=== PATIENT | male | born 1955 | race Caucasian/White ===

== ENCOUNTER 2019-01-15 05:49 | Inpatient (IN) | payer OTHER ==
--- NOTE | 2019-01-09 09:40 | HP ---
HISTORY AND PHYSICAL: DATE OF SURGERY: 01/15/19 DATE OF OFFICE VISIT: 01/05/19 SURGEON: Keily Couch MD.* (DICTATED BY GERMAN CORDOVA) PROCEDURE: Right total hip arthroplasty. CHIEF COMPLAINT: Right hip pain. HISTORY OF PRESENT ILLNESS: Mr. Romo is a 63-year-old gentleman with continued complaints of right hip pain. He has failed conservative treatment and elected to proceed with a right total hip arthroplasty. PAST MEDICAL HISTORY: Hypertension, high cholesterol, gout. PAST SURGICAL HISTORY: Tonsillectomy, sebaceous cyst removal from his back. CURRENT MEDICATIONS: 1. Potassium. 2. Gemfibrozil 600 mg 1 tablet twice a day. 3. Atenolol unknown dose daily. 4. Amlodipine daily. 5. Lisinopril daily. 6. Sulindac. 7. Allopurinol. 8. Methocarbamol. 9. Gabapentin. ALLERGIES: No known drug allergies. FAMILY HISTORY: Diabetes and hypertension. SOCIAL HISTORY: He is a 63-year-old gentleman. He lives alone. He works as a interrelated special education teacher. He denies use of tobacco or illicit drugs. REVIEW OF SYSTEMS: A complete 14-point review of systems was reviewed with the patient, is all negative or noncontributory. He denies history of DVT, PE, hepatitis, HIV, or anesthesia problems. PHYSICAL EXAMINATION GENERAL: He is well developed, well nourished, in no acute distress. VITAL SIGNS: He stands 5 feet 10 inches tall, weighs 257 pounds. His blood pressure is 124/84, his heart rate is 80. HEENT: Normocephalic and atraumatic. NECK: Supple. No palpable lymph nodes. PULMONARY: The lungs are clear to auscultation bilaterally. CARDIO: Regular rate and rhythm. Strong S1 and S2. ABDOMEN: Soft, nontender, and nondistended. NEUROLOGIC: He is alert and oriented x3. MUSCULOSKELETAL: Right lower extremity, the skin is intact. There are no open wounds or abrasions. He has 0 to 80 degrees of hip flexion. He lacks 10 degrees from neutral and has no internal rotation. Has 20 degrees of external rotation with severe groin pain. He has 2+ dorsalis pedis pulse, intact sensation, and his lower extremity muscle group strengths are intact at 5/5. ASSESSMENT AND PLAN: Mr. Romo is a 63-year-old gentleman with severe end- stage osteoarthritis of the right hip. He has failed conservative treatment and elected to proceed with a right total hip arthroplasty. The surgery is scheduled for 01/15/[address] Couch discussed the risks and benefits of the surgery at today's visit and all of his questions were answered. He will follow up with Dr. Couch 2 weeks after his surgery. GERMAN CORDOVA [id number]/[facility] #: [id number] MTDJacqueline
[~2019-01-15 05:49] MED LIST: DiMENhydriNATE IV* 50 MG/ML VIAL IV PUSH PRN; Morphine VIAL* 4 MG/ML VIAL (1 ml vial) IV PRN; Naloxone* 0.4 MG/ML 1 ML VIAL IV PRN; PROCHLORPERAZINE INJ 5 MG/ML 2 ML VIAL IV PRN; fentaNYL* 50 MCG/ML 2 ML VIAL (100 MCG VIAL) IV PRN; oxyCODONE/Acetamin 5/325 MG* TAB PO PRN
[2019-01-15] MEDS ORDERED: Lactated Ringers 1000 ML Bag* 1,000 ML IV SCH ×2 (06:00→11:00)
[2019-01-15] MEDS ORDERED: Famotidine IV* 10 MG/ML 2 ML (20 mg) IV ONE (06:00)
[2019-01-15] MEDS ORDERED: Gabapentin CAP(*) 300 MG PO ONE (06:00)
[2019-01-15] MEDS ORDERED: Ondansetron INJ* 2 MG/ML VIAL ONE (06:00)
[2019-01-15] MEDS ORDERED: Dexamethasone TAB* 4 MG PO ONE (06:00)
[2019-01-15] MEDS ORDERED: Gabapentin CAP(*) 300 MG ONE (06:41)
[2019-01-15] MEDS ORDERED: Famotidine IV* 10 MG/ML 2 ML (20 mg) ONE (06:41)
[2019-01-15] MEDS ORDERED: Ondansetron ODT TAB* 4 MG ONE (06:41)
[2019-01-15] MEDS ORDERED: ceFAZolin 2 GM PREMIX in ORs 2 GM/50 ML BAG IVPB ONE (06:42)
[2019-01-15] MEDS ORDERED: Dexamethasone TAB* 4 MG ONE (06:42)
[2019-01-15] MEDS: Buffered Lidocaine 1% SYRIN* 1 ML/SYRINGE INTRADERM ONE ×2 (06:58→18:06)
[2019-01-15] MEDS ORDERED: fentaNYL* 50 MCG/ML 5 ML VIAL (250 MCG VIAL) ONE (07:03)
[2019-01-15] MEDS ORDERED: Midazolam* 1 MG/ML 5 ML VIAL (5 MG) ONE (07:03)
[2019-01-15] MEDS ORDERED: Atracurium* 10 MG/ML 10 ML VIAL ONE (07:03)
[2019-01-15] MEDS ORDERED: ROPIVACAINE 5 MG/ML 30 ML BTL (0.5%) ONE (07:14)
[2019-01-15] MEDS ORDERED: Ketorolac INJ* 30 MG/ML 1 ML VIAL ONE (08:54)
[2019-01-15] MEDS ORDERED: PROCHLORPERAZINE INJ 5 MG/ML 2 ML VIAL ONE (08:54)
[2019-01-15] MEDS ORDERED: Propofol* 10 MG/ML 20 ML BTL ONE (08:54)
[2019-01-15] MEDS ORDERED: Lidocaine 2% PF * 5 ML VIAL ONE (08:54)
[2019-01-15] MEDS ORDERED: Phenylephrine INJ* 10 MG/ML 1 ML VIAL (10 MG) ONE (08:54)
[2019-01-15] MEDS ORDERED: Morphine VIAL* 10 MG/ML 1 ML VIAL ONE (09:09)
[2019-01-15] MEDS ORDERED: Morphine VIAL* 4 MG/ML VIAL (1 ml vial) IV PRN (10:07)
[2019-01-15] MEDS ORDERED: Magnesium Hydroxide LIQ* 30 ML UDC PO PRN (10:07)
[2019-01-15] MEDS ORDERED: diPHENhydraMINE IV* 50 MG/ML 1 ml VIAL (BENADRYL) IV PRN (10:07)
[2019-01-15] MEDS ORDERED: Cyclobenzaprine TAB* 10 MG PO PRN (10:07)
[2019-01-15] MEDS ORDERED: Ondansetron INJ* 2 MG/ML VIAL IV PRN (10:07)
[2019-01-15] MEDS ORDERED: Acetaminophen TAB* 325 MG PO PRN (10:07)
[2019-01-15] MEDS ORDERED: oxyCODONE/Acetamin 5/325 MG* TAB PO PRN (10:07)
[2019-01-15] MEDS ORDERED: Bisacodyl SUPP* 10 MG SUPP PR PRN (10:07)
[2019-01-15] MEDS ORDERED: fentaNYL* 50 MCG/ML 2 ML VIAL (100 MCG VIAL) ONE (10:20)
[2019-01-15] MEDS ORDERED: oxyCODONE/Acetamin 5/325 MG* TAB ONE (10:53)
[2019-01-15] MEDS: oxyCODONE/Acetamin 5/325 MG* TAB PO PRN ×2 (10:54→18:55)
[2019-01-15] MEDS: ceFAZolin 1 GM ADVAN(*) 1 GM in NS 0.9% 50 ML* 50 ML IVPB SCH ×2 (16:46→23:22)
[2019-01-15] MEDS ORDERED: Warfarin TAB(*) 6 MG PO ONE (17:00)
--- NOTE | 2019-01-15 17:56 | PN ---
Subjective Date of Service: 01/15/19 Interval History: HD1 POD #0 63 yo M with PMH HTN, HLD, gout, SO? (un dx and not on tx) who is presenting for THR, R. Uncomplicated procedure per ortho team, med is consulted for medical mgmt Post op course c/b hypoxia, CXR unremarkable VSS at 6PM, afebrile,normotensive, sinus regular Seen at bedside very pleasant and well, minimal pain, wearing NC, O2 requirmeents going down as anesthesia wears off, no complaints whatsoever Objective Active Medications: Acetaminophen (Tylenol Tab*) 650 mg PO Q6H PRN PRN Reason: PAIN OR TEMPERATURE Amlodipine Besylate (Norvasc Tab*) 10 mg PO QAM JON Atenolol (Tenormin Tab*) 50 mg PO QAM JON Bisacodyl (Dulcolax Supp*) 10 mg AL DAILY PRN PRN Reason: constipation Cyclobenzaprine HCl (Flexeril Tab*) 5 mg PO TID PRN PRN Reason: SPASMS Diphenhydramine HCl (Benadryl Iv*) 25 mg IV Q6H PRN PRN Reason: itching Docusate Sodium (Colace Cap*) 100 mg PO BID JON Enoxaparin Sodium (Lovenox(*)) 40 mg SUBCUT Q24H JON Cefazolin Sodium 1 gm/ Sodium (Chloride) 50 mls @ 200 mls/hr IVPB Q8H [facility] Stop: 01/16/19 07:44 Last Admin: 01/15/19 16:46 Dose: 200 mls/hr Lactated Ringer's (Lactated Ringers 1000 Ml Bag*) 1,000 mls @ 100 mls/hr IV PER RATE [facility] Lactulose (Lactulose*) 30 ml PO Q6H PRN PRN Reason: constipation Lisinopril (Prinivil Tab*) 40 mg PO BID JON Magnesium Hydroxide (Milk Of Magnesia Liq*) 30 ml PO BID JON Magnesium Hydroxide (Milk Of Magnesia Liq*) 30 ml PO Q6H PRN PRN Reason: constipation Morphine Sulfate (Morphine Vial*) 2 mg IV Q2H PRN PRN Reason: PAIN Ondansetron HCl (Zofran Inj*) 4 mg IV Q6H PRN PRN Reason: nausea Oxycodone HCl (Roxycodone Tab*) 10 mg PO Q4H PRN PRN Reason: PAIN - SEVERE Oxycodone/Acetaminophen (Percocet 5/325 Tab*) 1 tab PO Q4H PRN PRN Reason: PAIN Oxycodone/Acetaminophen (Percocet 5/325 Tab*) 2 tab PO Q4H PRN PRN Reason: PAIN Last Admin: 01/15/19 10:54 Dose: 2 tab Vital Signs - 8 hr 01/15/19 01/15/19 01/15/19 10:06 10:11 10:16 Temperature 97.0 F Pulse Rate 73 75 71 Respiratory 23 17 Rate Blood Pressure 142/82 129/78 134/73 (mmHg) O2 Sat by Pulse 92 94 95 Oximetry 01/15/19 01/15/19 01/15/19 10:20 10:30 10:45 Temperature Pulse Rate 69 62 Respiratory 21 20 Rate Blood Pressure 129/74 127/73 (mmHg) O2 Sat by Pulse 90 98 95 Oximetry 01/15/19 01/15/19 01/15/19 10:46 10:54 11:00 Temperature Pulse Rate 64 Respiratory 28 15 12 Rate Blood Pressure 137/76 132/77 (mmHg) O2 Sat by Pulse 91 Oximetry 01/15/19 01/15/19 01/15/19 11:15 11:31 11:45 Temperature Pulse Rate 64 64 65 Respiratory 13 14 12 Rate Blood Pressure 126/71 136/67 127/77 (mmHg) O2 Sat by Pulse 94 98 98 Oximetry 01/15/19 01/15/19 01/15/19 12:00 12:15 12:30 Temperature 97.2 F Pulse Rate 66 64 64 Respiratory 18 7 7 Rate Blood Pressure 123/71 115/66 121/70 (mmHg) O2 Sat by Pulse 98 91 90 Oximetry 01/15/19 01/15/19 01/15/19 12:45 13:00 14:00 Temperature 97.0 F Pulse Rate 65 63 Respiratory 6 8 Rate Blood Pressure 110/69 119/65 (mmHg) O2 Sat by Pulse 90 95 98 Oximetry 01/15/19 01/15/19 01/15/19 14:31 17:07 17:32 Temperature 97.6 F 98.2 F 98.3 F Pulse Rate 65 74 72 Respiratory 18 18 20 Rate Blood Pressure 122/63 144/77 139/73 (mmHg) O2 Sat by Pulse 98 100 100 Oximetry Oxygen Devices in Use Now: None, Nasal Cannula Appearance: Pleasant man in NAD Eyes: No Scleral Icterus Ears/Nose/Mouth/Throat: NL Teeth, Lips, Gums, Clear Oropharnyx Neck: NL Appearance and Movements; NL JVP, - - Large circumference Respiratory: Symmetrical Chest Expansion and Respiratory Effort, Clear to Auscultation Cardiovascular: NL Sounds; No Murmurs; No JVD, RRR Abdominal: NL Sounds; No Tenderness; No Distention, No Hepatosplenomegaly Lymphatic: No Cervical Adenopathy Extremities: No Edema Skin: No Rash or Ulcers Neurological: Alert and Oriented x 3 Assess/Plan/Problems-Billing Assessment: 63 yo M with PMH HTN, HLD, gout, SO? on CPAP who is presenting for TKR completed 01/15, medicine consulted for co managment - Patient Problems (1) Knee joint replacement status Current Visit: Yes Status: Acute Code(s): Z96.659 - PRESENCE OF UNSPECIFIED ARTIFICIAL KNEE JOINT SNOMED Code(s): 300326870 Comment: -Continue post operative pain control per ortho team (2) Hypertension Current Visit: Yes Status: Acute Code(s): I10 - ESSENTIAL (PRIMARY) HYPERTENSION SNOMED Code(s): 48513716 Comment: -Atenolol and Lisinopril, continue home doses (3) Hypoxia Current Visit: Yes Status: Acute Code(s): R09.02 - HYPOXEMIA SNOMED Code(s ): 557041356 Comment: -Post operative hypoxia while sleeping 2/2 ? SO and anesthesia -CXR unremarkable -No fevers, no tachycaria to suggest PE, CTM (4) Gout Current Visit: Yes Status: Acute Code(s): M10.9 - GOUT, UNSPECIFIED SNOMED Code(s): 12109456 Comment: -Holding home allopurinol, can restart on d/c (5) DVT prophylaxis Current Visit: Yes Status: Acute Code(s): KFJ4440 - SNOMED Code(s): 557615280 Comment: -Per ortho team
[2019-01-15] MEDS: Lisinopril TAB* 10 MG PO SCH (21:16)
[2019-01-15] MEDS: Magnesium Hydroxide LIQ* 30 ML UDC PO SCH (21:16)
[2019-01-15] MEDS: Docusate CAP* 100 MG PO SCH (21:16)
[2019-01-15] MEDS: oxyCODONE TAB* 5 MG TAB PO PRN (23:22)
--- NOTE | 2019-01-15 23:30 | OP ---
DATE OF OPERATION: 01/15/19 - ROOM #346 DATE OF : 53 ATTENDING SURGEON: Keily Couch MD BELT BRANDER: GERMAN Vera. Mr. Clements did help throughout the procedure with preparation of the leg, wound retraction, manipulation of the hip, and wound closure. ANESTHESIOLOGIST: Dr. Short. ANESTHESIA: General. PRE-OP DIAGNOSIS: Severe endstage degenerative osteoarthritis of the right hip joint. POST-OP DIAGNOSIS: Severe endstage degenerative osteoarthritis of the right hip joint. OPERATIVE PROCEDURE: Right total hip arthroplasty. COMPLICATIONS: None. ESTIMATED BLOOD LOSS: 250 cc. SPECIMEN: Femoral head and acetabular reaming sent to Pathology. HARDWARE USED: This is uncemented Ashutosh total hip arthroplasty hardware. For the cup, a Tritanium cluster hole shell 56D, a single 20 mm screw. For the liner, a Trident X3 0-degree polyethylene insert 36E. For the stem, an Accolade 2 size 5 with 127-degree neck. For the head, a Biolox delta ceramic V40 36 +0 femoral head. BRIEF HISTORY/INDICATION: Mr. Romo is a 63-year-old gentleman with years of increasingly severe right hip pain. He failed conservative treatment with the anti- inflammatories, pain medication, and physical therapy. Due to continued pain and decreased quality of life, he elected to undergo a right total hip arthroplasty. Radiographs showed end-stage arthritis with [id number] contact. Informed consent was obtained from the patient. He understood the risks of surgery included but not limited to bleeding, infection, damage to nearby structures, continued pain, need for further surgery, intraoperative fracture, nerve palsy, hardware failure or loosening, dislocation, leg length discrepancy, stroke, heart attack, blood clot, and . He wished to proceed. INTRAOPERATIVE FINDINGS: Intraoperatively, the patient was noted to have severe end-stage arthritis with extensive subchondral sclerosis in the acetabulum. He had full-thickness loss of cartilage along the femoral head and the acetabulum. DESCRIPTION OF PROCEDURE: Mr. Romo was identified in the preanesthesia unit. His right hip was marked as the correct operative side. Informed consent was signed and placed in the chart. The patient was taken to the operating room and placed under general anesthesia. A Galindo catheter was placed. The patient was placed in the left lateral decubitus position on the peg board. All bony prominences were well padded. Right lower extremity was prepped and draped in the usual sterile fashion. Preop time-out was made to correctly identify the patient, side, and site. Appropriate perioperative antibiotics were given within 1 hour of incision. A standard posterior hip incision was made with a 10 blade and carried down to the lateral fascial layer. Lateral fascial layer was incised in line with the skin incision. A Charnley retractor was placed. The piriformis and conjoint tendons were elevated off the posterolateral femur using electrocautery. These were tagged with #5 Ethibond. Next, electro-cautery was used to make a standard posterolateral capsular flap. This was also tagged with #5 Ethibond. The hip was carefully dislocated. Lesser troch to the center of the femoral head measured 60 mm. Oscillating saw was used to make the femoral neck cut and femoral head was removed. After appropriate placement of retractors, the acetabulum was easily visualized. A long-handled knife was used to sharply remove any remaining labrum from the acetabular rim. The acetabulum was sequentially reamed up to a size 55. A 55-reamer established a subchondral bleeding bone bed. A 55 trial had good fit and stability. The final implant chosen was a Tritanium cluster hole shell 56D. This was impacted into the acetabulum without difficulty. The cup had excellent stability as well as appropriate anteversion and abduction angle. A single 20 mm screw placed at the superior posterior quadrant for extra stability. A 36E Trident X3 0-degree polyethylene liner was chosen. This was impacted into the acetabulum without difficulty. Stability of the insert was checked and rechecked and noted to be stable. Next, attention was turned to preparation of the proximal femur. A canal finder was used to enter the proximal femur. The femur was sequentially broached up to a size 5. A size 5 broach had excellent fit and appropriate anteversion. A 127-neck trial with a 36 +0 head trial was chosen. Lesser troch to the center of the femoral head measured 60 mm. The hip was reduced and taken through range of motion. The hip was stable in all positions. There was good soft tissue tension and appropriate leg length. The hip was carefully dislocated. All trials are removed. Final implant chosen was an Accolade 2 size 5 with a 127-degree neck angle. This was impacted into the femoral canal without difficulty. There was excellent stability of the stem with appropriate anteversion. A Biolox delta ceramic V40 femoral head, 36 +0 was chosen as the final femoral head. Lesser troch to the center of the femoral head measured 60 mm. The hip was reduced and taken through range of motion. The hip was stable in all positions. There was good soft tissue tension and appropriate leg lengths. The hip was copiously irrigated with sterile saline. Previously tagged capsules were reapproximated to the posterolateral femur using two trochanteric drill holes. The lateral fascial layer was closed using interrupted #1 Vicryls. The rest of the incision was closed in a layered fashion using 0 and 2-0 Vicryls. The skin was closed using running 3-0 Monocryl with Dermabond. Sterile Adaptic, 4x4s, and paper tape were used to cover the incision. The patient's anesthesia was reversed without difficulty. He was taken to the PACU in stable condition. Intended weight-bearing will be weightbearing as tolerated. Intended DVT prophylaxis will be Eliquis. [id number]/[facility] #: [id number] [facility]INGTON HOSPITALJacqueline
[2019-01-16 05:48] LABS: Hematocrit 35 % (42-52); Hemoglobin 11.8 g/dl (14.0-18.0); Mean Platelet Volume 10.1 fL (7.4-10.4); Platelet Count 150 10^3/ul (150-450)
[2019-01-16] MEDS: oxyCODONE TAB* 5 MG TAB PO PRN ×5 (05:52→23:01)
[2019-01-16 06:07] LABS: INR 1.13 (0.77-1.02)
[2019-01-16 06:10] LABS: BUN/Creatinine Ratio 24.2 (8-20); EGFR Non-African American 121.5 (>60); Potassium 4.1 mmol/L (3.5-5.0)
[2019-01-16] MEDS: ceFAZolin 1 GM ADVAN(*) 1 GM in NS 0.9% 50 ML* 50 ML IVPB SCH (07:51)
--- NOTE | 2019-01-16 07:56 | PN ---
Progress Note - Progress Note Date of Service: 01/16/19 SOAP: Subjective: resting comfortably with pain well controlled Objective: Vital Signs Temp Pulse Resp BP Pulse Ox 98.1 F 67 16 117/76 96 01/16/19 03:51 01/16/19 03:51 01/16/19 07:53 01/16/19 03:51 01/16/19 06:10 Laboratory Last Values Hgb 11.8 g/dl (14.0-18.0) L 01/16/19 05:16 Hct 35 % (42-52) L 01/16/19 05:16 Plt Count 150 10^3/ul (150-450) 01/16/19 05:16 MPV 10.1 fL (7.4-10.4) 01/16/19 05:16 INR (Anticoag Therapy) 1.13 (0.77-1.02) H 01/16/19 05:21 Sodium 138 mmol/L (135-145) 01/16/19 05:21 Potassium 4.1 mmol/L (3.5-5.0) 01/16/19 05:21 Chloride 106 mmol/L (101-111) 01/16/19 05:21 Carbon Dioxide 27 mmol/L (22-32) 01/16/19 05:21 Anion Gap 5 mmol/L (2-11) 01/16/19 05:21 BUN 16 mg/dL (6-24) 01/16/19 05:21 Creatinine 0.66 mg/dL (0.67-1.17) L 01/16/19 05:21 Est GFR ( Amer) 147.0 (>60) 01/16/19 05:21 Est GFR (Non-Af Amer) 121.5 (>60) 01/16/19 05:21 BUN/Creatinine Ratio 24.2 (8-20) H 01/16/19 05:21 Glucose 144 mg/dL (70-100) H 01/16/19 05:21 Calcium 9.0 mg/dL (8.6-10.3) 01/16/19 05:21 incision: c/d PE: able to dorsi flex/plantar flex, intact sensation, 2+ DP pulse Assessment: s/p right AVINASH; POD #1 Plan: 1) PT/OT- WBAT 2) Lovenox/Coumadin for DVT prophylaxis 3) Ancef for 24 hours post-op
[2019-01-16] MEDS: Lisinopril TAB* 10 MG PO SCH ×2 (09:49→21:54)
[2019-01-16] MEDS: Docusate CAP* 100 MG PO SCH ×2 (09:50→21:54)
[2019-01-16] MEDS: Atenolol TAB* 50 MG PO SCH (09:50)
[2019-01-16] MEDS: amLODIPine TAB* 5 MG PO SCH (09:50)
[2019-01-16] MEDS: Magnesium Hydroxide LIQ* 30 ML UDC PO SCH ×2 (09:51→21:56)
[2019-01-16] MEDS: Enoxaparin(*) 40 MG/0.4 ML SYR SUBCUT SCH (09:52)
--- NOTE | 2019-01-16 14:01 | PN ---
Subjective Date of Service: 01/16/19 Interval History: HD2 POD #1 63 yo M with PMH HTN, HLD, gout, SO? (un dx and not on tx) who is presenting for THR, R. Uncomplicated procedure per ortho team, med is consulted for medical mgmt Post op course c/b hypoxia, CXR unremarkable, now weaned to room air and doing well. VSS overnight, no HTN, afebrile, labs reviewed all WNL This afternoon he is very pleasant and well, minimal pain, no complaints whatsoever Objective Active Medications: Acetaminophen (Tylenol Tab*) 650 mg PO Q6H PRN PRN Reason: PAIN OR TEMPERATURE Amlodipine Besylate (Norvasc Tab*) 10 mg PO QAM [facility] Last Admin: 01/16/19 09:50 Dose: 10 mg Atenolol (Tenormin Tab*) 50 mg PO QAM [facility] Last Admin: 01/16/19 09:50 Dose: 50 mg Bisacodyl (Dulcolax Supp*) 10 mg MT DAILY PRN PRN Reason: constipation Cyclobenzaprine HCl (Flexeril Tab*) 5 mg PO TID PRN PRN Reason: SPASMS Diphenhydramine HCl (Benadryl Iv*) 25 mg IV Q6H PRN PRN Reason: itching Docusate Sodium (Colace Cap*) 100 mg PO BID [facility] Last Admin: 01/16/19 09:50 Dose: 100 mg Enoxaparin Sodium (Lovenox(*)) 40 mg SUBCUT Q24H [facility] Last Admin: 01/16/19 09:52 Dose: 40 mg Lactated Ringer's (Lactated Ringers 1000 Ml Bag*) 1,000 mls @ 100 mls/hr IV PER RATE [facility] Last Admin: 01/16/19 01:35 Dose: 100 mls/hr Lactulose (Lactulose*) 30 ml PO Q6H PRN PRN Reason: constipation Lisinopril (Prinivil Tab*) 40 mg PO BID [facility] Last Admin: 01/16/19 09:49 Dose: 40 mg Magnesium Hydroxide (Milk Of Magnesia Liq*) 30 ml PO BID [facility] Last Admin: 01/16/19 09:51 Dose: 30 ml Magnesium Hydroxide (Milk Of Magnesia Liq*) 30 ml PO Q6H PRN PRN Reason: constipation Morphine Sulfate (Morphine Vial*) 2 mg IV Q2H PRN PRN Reason: PAIN Ondansetron HCl (Zofran Inj*) 4 mg IV Q6H PRN PRN Reason: nausea Oxycodone HCl (Roxycodone Tab*) 10 mg PO Q4H PRN PRN Reason: PAIN - SEVERE Last Admin: 01/16/19 09:50 Dose: 10 mg Oxycodone/Acetaminophen (Percocet 5/325 Tab*) 1 tab PO Q4H PRN PRN Reason: PAIN Oxycodone/Acetaminophen (Percocet 5/325 Tab*) 2 tab PO Q4H PRN PRN Reason: PAIN Last Admin: 01/15/19 18:55 Dose: 2 tab Pharmacy Profile Note (Coumadin Daily Reminder*) 1 note FOLLOW UP 1700 JON Warfarin Sodium (Coumadin Tab(*)) 8 mg PO ONCE@1700 ONE; Protocol Stop: 01/16/19 17:01 Vital Signs - 8 hr 01/16/19 01/16/19 01/16/19 06:10 07:53 08:00 Temperature Pulse Rate Respiratory 19 16 16 Rate Blood Pressure (mmHg) O2 Sat by Pulse 96 97 Oximetry 01/16/19 01/16/19 01/16/19 08:03 09:50 10:00 Temperature 98.7 F Pulse Rate 79 Respiratory 16 16 18 Rate Blood Pressure 158/83 (mmHg) O2 Sat by Pulse 100 97 Oximetry 01/16/19 01/16/19 01/16/19 11:53 12:00 12:35 Temperature 98.6 F Pulse Rate 63 Respiratory 17 18 16 Rate Blood Pressure 129/69 (mmHg) O2 Sat by Pulse 98 97 Oximetry Oxygen Devices in Use Now: None Appearance: Pleasant man in NAD Eyes: No Scleral Icterus Ears/Nose/Mouth/Throat: NL Teeth, Lips, Gums Neck: NL Appearance and Movements; NL JVP Respiratory: Symmetrical Chest Expansion and Respiratory Effort, Clear to Auscultation Cardiovascular: NL Sounds; No Murmurs; No JVD, RRR Abdominal: NL Sounds; No Tenderness; No Distention, No Hepatosplenomegaly Extremities: - - R hip with dressing Skin: No Rash or Ulcers Neurological: Alert and Oriented x 3 Result Diagrams: 01/16/19 05:16 01/16/19 05:21 Assess/Plan/Problems-Billing Assessment: 63 yo M with PMH HTN, HLD, gout, SO? on CPAP who is presenting for TKR completed 01/15, medicine consulted for co managment, early course c/b hypoxia now fully resolved - Patient Problems (1) History of total hip arthroplasty Current Visit: Yes Status: Acute Code(s): Z96.649 - PRESENCE OF UNSPECIFIED ARTIFICIAL HIP JOINT SNOMED Code(s): 036197057634 Comment: s/p R R hip plasty -Pain control per primary (2) Hypertension Current Visit: Yes Status: Acute Code(s): I10 - ESSENTIAL (PRIMARY) HYPERTENSION SNOMED Code(s): 68656445 Comment: -Atenolol and Lisinopril, continue home doses (3) Hypoxia Current Visit: Yes Status: Acute Code(s): R09.02 - HYPOXEMIA SNOMED Code(s ): 220370817 Comment: -Resolved most likely anesthesia induced as well as possibly mild SO underlying undx -CXR unremarkable -No fevers, no tachycaria to suggest PE, CTM (4) Gout Current Visit: Yes Status: Acute Code(s): M10.9 - GOUT, UNSPECIFIED SNOMED Code(s): 23696526 Comment: -Holding home allopurinol, can restart on d/c (5) DVT prophylaxis Current Visit: Yes Status: Acute Code(s): MBE2698 - SNOMED Code(s): 672541319 Comment: -Per ortho team Status and Disposition: [place] tomorrow destiney
[2019-01-16] MEDS ORDERED: Warfarin TAB(*) 4 MG PO ONE (17:00)
[2019-01-17 05:57] LABS: Hematocrit 34 % (42-52); Hemoglobin 11.5 g/dl (14.0-18.0); Platelet Count 145 10^3/ul (150-450)
[2019-01-17] MEDS: oxyCODONE TAB* 5 MG TAB PO PRN ×2 (06:01→12:03)
[2019-01-17 06:02] LABS: INR 1.16 (0.77-1.02)
--- NOTE | 2019-01-17 09:03 | PN ---
Subjective Date of Service: 01/17/19 Interval History: HD # 3, POD #2 s/p R hip plasty 63 yo M with PMH HTN, possible SO, gout, who is being followed by medicine for comgmt. Breifly hypoxic POD#0, resolved VSS in last 24 hours, labs stable, pt has been very well without any sig medical complications in this hospitlization He is stable to be d/c with resumption of his home medicines for hypertension and gout. He can pursue a PSG to w/u possible mild SO as an outpatient, and thinks he has had this discussion with PCP in the past. From a medical standpoint we will sign off, please don't hesitate to contact us if questions on discharge or questions from patient. Thank you for this interesting consult. Objective Active Medications: Acetaminophen (Tylenol Tab*) 650 mg PO Q6H PRN PRN Reason: PAIN OR TEMPERATURE Amlodipine Besylate (Norvasc Tab*) 10 mg PO QAM [facility] Last Admin: 01/16/19 09:50 Dose: 10 mg Atenolol (Tenormin Tab*) 50 mg PO QAM [facility] Last Admin: 01/16/19 09:50 Dose: 50 mg Bisacodyl (Dulcolax Supp*) 10 mg MT DAILY PRN PRN Reason: constipation Cyclobenzaprine HCl (Flexeril Tab*) 5 mg PO TID PRN PRN Reason: SPASMS Diphenhydramine HCl (Benadryl Iv*) 25 mg IV Q6H PRN PRN Reason: itching Docusate Sodium (Colace Cap*) 100 mg PO BID [facility] Last Admin: 01/16/19 21:54 Dose: 100 mg Enoxaparin Sodium (Lovenox(*)) 40 mg SUBCUT Q24H [facility] Last Admin: 01/16/19 09:52 Dose: 40 mg Lactated Ringer's (Lactated Ringers 1000 Ml Bag*) 1,000 mls @ 100 mls/hr IV PER RATE [facility] Last Admin: 01/16/19 01:35 Dose: 100 mls/hr Lactulose (Lactulose*) 30 ml PO Q6H PRN PRN Reason: constipation Lisinopril (Prinivil Tab*) 40 mg PO BID [facility] Last Admin: 01/16/19 21:54 Dose: 40 mg Magnesium Hydroxide (Milk Of Magnesia Liq*) 30 ml PO BID [facility] Last Admin: 01/16/19 21:56 Dose: 30 ml Magnesium Hydroxide (Milk Of Magnesia Liq*) 30 ml PO Q6H PRN PRN Reason: constipation Morphine Sulfate (Morphine Vial*) 2 mg IV Q2H PRN PRN Reason: PAIN Ondansetron HCl (Zofran Inj*) 4 mg IV Q6H PRN PRN Reason: nausea Oxycodone HCl (Roxycodone Tab*) 10 mg PO Q4H PRN PRN Reason: PAIN - SEVERE Last Admin: 01/17/19 06:01 Dose: 10 mg Oxycodone/Acetaminophen (Percocet 5/325 Tab*) 1 tab PO Q4H PRN PRN Reason: PAIN Oxycodone/Acetaminophen (Percocet 5/325 Tab*) 2 tab PO Q4H PRN PRN Reason: PAIN Last Admin: 01/15/19 18:55 Dose: 2 tab Pharmacy Profile Note (Coumadin Daily Reminder*) 1 note FOLLOW UP 1700 [facility] Last Admin: 01/16/19 17:26 Dose: 1 note Vital Signs - 8 hr 01/17/19 01/17/19 01/17/19 01:00 03:48 06:01 Temperature 97.9 F Pulse Rate 63 Respiratory 18 17 20 Rate Blood Pressure 119/65 (mmHg) O2 Sat by Pulse 95 Oximetry 01/17/19 07:30 Temperature 98.6 F Pulse Rate 70 Respiratory 17 Rate Blood Pressure 123/75 (mmHg) O2 Sat by Pulse 96 Oximetry Oxygen Devices in Use Now: None Result Diagrams: 01/17/19 05:49 01/16/19 05:21 Assess/Plan/Problems-Billing Assessment: 63 yo M with PMH HTN, HLD, gout, SO? on CPAP who is presenting for TKR completed 01/15, medicine consulted for co managment, early course c/b hypoxia now fully resolved - Patient Problems (1) History of total hip arthroplasty Current Visit: Yes Status: Acute Code(s): Z96.649 - PRESENCE OF UNSPECIFIED ARTIFICIAL HIP JOINT SNOMED Code(s): 612372913310 Comment: s/p R R hip plasty -Pain control per primary (2) Hypertension Current Visit: Yes Status: Acute Code(s): I10 - ESSENTIAL (PRIMARY) HYPERTENSION SNOMED Code(s): 87187706 Comment: -Atenolol and Lisinopril, continue home doses (3) Hypoxia Current Visit: Yes Status: Acute Code(s): R09.02 - HYPOXEMIA SNOMED Code(s ): 978231507 Comment: -Resolved most likely anesthesia induced as well as possibly mild SO underlying undx -CXR unremarkable -No fevers, no tachycaria to suggest PE, CTM (4) Gout Current Visit: Yes Status: Acute Code(s): M10.9 - GOUT, UNSPECIFIED SNOMED Code(s): 03951344 Comment: -Holding home allopurinol, can restart on d/c (5) DVT prophylaxis Current Visit: Yes Status: Acute Code(s): KIG1698 - SNOMED Code(s): 813160507 Comment: -Per ortho team Status and Disposition: [facility] tomorrow destiney
[2019-01-17] MEDS: Lisinopril TAB* 10 MG PO SCH (09:42)
--- NOTE | 2019-01-17 09:45 | PN ---
Progress Note - Progress Note Date of Service: 01/17/19 SOAP: Subjective: [] Pt seen at bedside. He feels well and desires DC to home. Denies CP, SOB, Dizziness, nausea. Has a low bed at home that would break hip precautions to get into, understands that he must sleep in his recliner which he agrees to. Objective: []General: Well appearing, NAD RLE: Right hip dressing CDI, Thigh is soft, DF/PF intact, DP2+, sensation intact to light touch distally Calves supple and nontender without erythema, edema or palpable cords Assessment: []s/p right AVINASH; POD #2 Plan: 1) PT/OT- WBAT 2) Lovenox/Coumadin for DVT prophylaxis. Pt has not reached therapeutic INR, insurance will not cover eliquis. Nursing instructed to provide lovenox teaching for bride to coumadin. Coumadin 8 mg today 3) DC to home today Vital Signs Temp 98.6 F 01/17/19 07:30 Pulse 70 01/17/19 07:30 Resp 17 01/17/19 07:30 BP 123/75 01/17/19 07:30 Pulse Ox 96 01/17/19 07:30 Intake & Output 01/16/19 01/17/19 01/17/19 18:59 06:59 18:59 Intake Total 2350 1660 Output Total 1025 950 Balance 1325 710 Intake: IV Fluids 865 LR 865 IVPB 55 ABX - CEFAZOLIN 55 Oral 1430 1660 Output: Urine 1025 950 Other: # Bowel Movements 0 Laboratory Last Values Hgb 11.5 g/dl (14.0-18.0) L 01/17/19 05:49 Hct 34 % (42-52) L 01/17/19 05:49 Plt Count 145 10^3/ul (150-450) L 01/17/19 05:49 MPV 10.0 fL (7.4-10.4) 01/17/19 05:49 INR (Anticoag Therapy) 1.16 (0.77-1.02) H 01/17/19 05:49 Sodium 138 mmol/L (135-145) 01/16/19 05:21 Potassium 4.1 mmol/L (3.5-5.0) 01/16/19 05:21 Chloride 106 mmol/L (101-111) 01/16/19 05:21 Carbon Dioxide 27 mmol/L (22-32) 01/16/19 05:21 Anion Gap 5 mmol/L (2-11) 01/16/19 05:21 BUN 16 mg/dL (6-24) 01/16/19 05:21 Creatinine 0.66 mg/dL (0.67-1.17) L 01/16/19 05:21 Est GFR ( Amer) 147.0 (>60) 01/16/19 05:21 Est GFR (Non-Af Amer) 121.5 (>60) 01/16/19 05:21 BUN/Creatinine Ratio 24.2 (8-20) H 01/16/19 05:21 Glucose 144 mg/dL (70-100) H 01/16/19 05:21 Calcium 9.0 mg/dL (8.6-10.3) 01/16/19 05:21
[2019-01-17] MEDS: Docusate CAP* 100 MG PO SCH (09:47)
[2019-01-17] MEDS: Atenolol TAB* 50 MG PO SCH (09:48)
[2019-01-17] MEDS: Magnesium Hydroxide LIQ* 30 ML UDC PO SCH (09:49)
[2019-01-17] MEDS: Enoxaparin(*) 40 MG/0.4 ML SYR SUBCUT SCH (09:56)
[2019-01-17] MEDS: amLODIPine TAB* 5 MG PO SCH (09:57)
[2019-01-17] MEDS ORDERED: Enoxaparin(*) 40 MG/0.4 ML SYR SUBCUT SCH (10:00)
[2019-01-17] MEDS ORDERED: Apixaban* 2.5 MG TAB PO SCH (11:00)
[2019-01-17 11:51] VITALS: BP 117/68
--- NOTE | 2019-01-17 13:02 | DS ---
DISCHARGE SUMMARY: DATE OF ADMISSION: 01/15/19 DATE OF DISCHARGE: 01/17/19 DATE OF OPERATION: 01/15/19 ATTENDING SURGEON: Dr. Keily Couch.* (DICTATED BY GERMAN MAYORGA) PRE-OP DIAGNOSIS: Severe end-stage degenerative osteoarthritis of the right hip joint. OPERATIVE PROCEDURE: Right total hip arthroplasty. HISTORY: Mr. Romo is a 63-year-old gentleman with years of increasingly severe right hip pain. He failed conservative management and elected to a undergo right total hip arthroplasty. HOSPITAL COURSE: The patient was admitted to [facility] on . He underwent a right total hip arthroplasty with Dr. Couch without complication. Postop day 1, he was well appearing, in no acute distress. He was able to dorsiflex and plantarflex. Sensation intact distally. DP pulse 2+ . He was also seen by a hospitalist service during his stay. He did have some postoperative hypoxia while sleeping secondary to questionably SO and anesthesia. Chest x-ray was unremarkable. He had no fevers and no tachycardia. Postop day 2, he was weaned to room air and doing well without any changes in his home medications. It is recommended that he have sleep study upon discharge for a possible sleep apnea. Postop day 2, dressing was changed. Incision clean, dry, and intact. Thigh was soft. Dorsiflexion and plantarflexion intact. Sensation intact to light touch distally. DP pulse 2+. Initially, the patient was placed on Lovenox and Coumadin for DVT prophylaxis. He has been receiving lovenox and coumadin but he confirmed that he would like to be on Eliquis 2.5 mg p.o. b.i.d. for DVT prophylaxis and would be understanding that he will have roughly 467 dollar charge for the month of this medication. Vital Signs: Temperature 98.6, pulse 70, respiratory rate 17, blood pressure 123/75, pulse ox 96 on room air. Hemoglobin 11.5, hematocrit 34, INR 1.16. Sodium 138, potassium 4.1. DISCHARGE MEDICATIONS: 1. Slow-Mag 200 mg p.o. b.i.d. 2. Amlodipine 10 mg p.o. q.a.m. 3. Lisinopril 40 mg p.o. b.i.d. 4. Atenolol 50 mg p.o. q.a.m. 5. Gemfibrozil 1200 mg p.o. q.a.m. 6. Potassium 60 mEq p.o. q.a.m. 7. Allopurinol 300 mg p.o. q.a.m. 8. Acetaminophen 650 mg p.o. q.6 hours p.r.n. 9. Eliquis 2.5 mg p.o. q.12 hours for 30 days. 10. Docusate 100 mg p.o. b.i.d. 11. Percocet 5/325 one to two tablets q.4 to 6 hours as needed for pain, max daily dose of 10. DISCHARGE PLAN: The patient will be weightbearing as tolerated. He will be discharged to home. He will continue hip precautions, DVT prophylaxis. Eliquis 2.5 mg by mouth every 12 hours for 30 days. Pain control with Percocet 5/325 one to two tablets every 4 to 6 hours as needed for pain, max daily dose of 10 tablets per day. Follow up with Dr. Couch in 10 to 14 days. GERMAN MAYORGA [id number]/[facility] #: [id number] ASMITA
== END 2019-01-17 15:30 | disposition home health service (06) | DRG 301 ==
LOC: AA 05:49 → SSU 10:07
PROVIDERS: ADMIT Orthopaedic Surgery Adult Reconstructive Orthopaedic Surgery; ATTEND Orthopaedic Surgery Adult Reconstructive Orthopaedic Surgery
PROC: 0SR904A Replacement of Right Hip Joint with Ceramic on Polyethylene Synthetic Substitute, Uncemented, Open Approach (ICD-10-PCS; principal; 2019-01-15 07:30)
DX: M16.11 Unilateral primary osteoarthritis, right hip (principal); I10 Essential (primary) hypertension; M1A.9XX0 Chronic gout, unspecified, without tophus (tophi); E78.1 Pure hyperglyceridemia; E80.4 Gilbert syndrome; D22.9 Melanocytic nevi, unspecified; E66.9 Obesity, unspecified; E78.5 Hyperlipidemia, unspecified; R09.02 Hypoxemia; F41.9 Anxiety disorder, unspecified; N40.0 Benign prostatic hyperplasia without lower urinary tract symptoms; G47.33 Obstructive sleep apnea (adult) (pediatric); T88.59XA Other complications of anesthesia, initial encounter; T41.205A Adverse effect of unspecified general anesthetics, initial encounter; Y92.239 Unspecified place in hospital as the place of occurrence of the external cause; Z83.3 Family history of diabetes mellitus; Z82.49 Family history of ischemic heart disease and other diseases of the circulatory system; Z68.36 Body mass index [BMI] 36.0-36.9, adult; Z72.89 Other problems related to lifestyle
CPT/HCPCS: 36415; 71046; 72170; 80048; 85014; 85018; 85049; 85610; 88304; 88311; 94660; A9270-GY; C1713; C1776; G8987-GO-CJ; G8988-GO-CI; J0690; J0780; J1650; J1885; J2250; J2270; J2704; J2795; J3010; J8540